=== PATIENT | male | born 1960 | race Caucasian/White ===

== ENCOUNTER 2017-07-10 20:59 | Emergency (ER) | payer OTHER ==
[2017-07-10 21:35] VITALS: TEMP 97.3
--- NOTE | 2017-07-10 22:23 | EDPHY ---
H & P Stated Complaint: headache Time Seen by Provider: 07/10/17 22:22 HPI/ROS: HPI: This is a 56-year-old male who presents with Chief Complaint: Headache Location: Behind both eyes, posterior head Quality: Throbbing pain Duration: 1-2 hours prior to arrival Signs and Symptoms: no fever, no nausea, no vomiting, + photophobia, + noise sensitivity, no neck stiffness, no ear pain, no tinnitus, no nasal congestion, no sinus pressure, no weakness, no radiation, + restless leg, no aura Timing: Acute Severity: Moderate Context: Patient reports that he has history of migraine headache and presents with 1 that is similar to his others today to the emergency room. He describes the pain to be throbbing behind both eyes and at the base of his neck, nonradiating in nature, moderate in intensity. He recently flew from [place] to [place] for work related purposes and developed a [place] He does report he has not drink enough water today. Denies any fever/neck stiffness/ear pain/weakness/radiation. He has not tried anything for the symptoms. Modifying Factors: None Comment: ROS: see HPI Constitutional: No fever, no chills, no weight loss Eyes: No blurred vision Respiratory: No shortness of breath, no cough Cardiovascular: No chest pain, no palpitations Gastrointestinal: No nausea, no vomiting, no diarrhea, no hematemesis, no blood in stool Genitourinary: No dysuria, no blood in urine Extremities: No myalgias, no edema Neurologic: No weakness, no numbness Skin: No rashes, no petechiae Hematologic: No bruising, no bleeding MEDICAL/SURGICAL/SOCIAL HISTORY: Medical history: Migraines Surgical history: Denies Social history: . Employed. Travels for his job. CONSTITUTIONAL: Mild distress, adult white male, awake and alert, no obvious distress HEENT: Atraumatic and normocephalic, PERRL, EOMI. Tympanic membranes clear. Oropharynx clear, no exudate and moist pink mucosa. Airway patent. No lymphadenopathy. No meningismus. Cardiovascular: Normal S1/S2, regular rate, regular rhythm, without murmur rub or gallop. PULMONARY/CHEST: Symmetrical and nontender. Clear to auscultation bilaterally. Good air movement. No accessory muscle usage. ABDOMEN: Soft, nondistended, nontender, no rebound, no guarding, no peritoneal signs, no masses or organomegaly. No CVAT. EXTREMITIES: 2/2 pulses, strength 5/5, no deformities, no clubbing, no cyanosis or edema. NEUROLOGICAL: no focal neuro deficits. GCS 15. Cranial nerves 2-12 grossly intact. Speech clear. Normal Romberg test. Normal cerebellar testing. SKIN: Warm and dry, no erythema. no rash. Good capillary refill. Source: Patient Exam Limitations: No limitations - Personal History Current Tetanus Diphtheria and Acellular Pertussis (TDAP): Unsure - Medical/Surgical History Hx Asthma: No Hx Chronic Respiratory Disease: No Hx Diabetes: No Hx Cardiac Disease: No Hx Renal Disease: No Hx Cirrhosis: No Hx Alcoholism: No Hx HIV/AIDS: No Hx Splenectomy or Spleen Trauma: No Other PMH: migraines, - Social History Smoking Status: Never smoked Constitutional: Initial Vital Signs Temperature (C) 36.3 C 07/10/17 21:32 Heart Rate 66 07/10/17 21:32 Respiratory Rate 20 07/10/17 21:32 Blood Pressure 192/117 H 07/10/17 21:32 O2 Sat (%) 96 07/10/17 21:32 Allergies/Adverse Reactions: amoxicillin [Amoxicillin] Allergy (Mild, Verified 07/10/17 21:31) Rash Home Medications: Medication Instructions Recorded Acet/Caffeine/Buta Fioricet 1 each PO Q6 PRN #12 tab 07/11/17 [Fioricet (*)] Medical Decision Making ED Course/Re-evaluation: No neurological deficits. Migraine is consistent with other migraine. Head CT imaging or MRI are not indicated at this time. Given 1 L normal saline, IV Toradol, IV Decadron, IV Reglan, IV promethazine and IV Ativan adequate relief Monitored in the emergency room for over 3 hr. 2340: Notified by nurse patient has been sleeping for over an hour. at bedside reports that he has complete relief. Vital signs improved at discharge. This patient was seen under the supervision of my secondary supervising physician. I evaluated care for this patient independently. Differential Diagnosis: Headache including but not limited to subarachnoid hemorrhage, migraine headache , tension headache and infectious causes such as meningitis, pharyngitis and sinusitis. - Data Points Medications Given: Discontinued Medications Dexamethasone (Decadron Injection) 8 mg IVP EDNOW ONE Stop: 07/10/17 22:39 Last Admin: 07/10/17 22:52 Dose: 8 mg Sodium Chloride (Ns) 1,000 mls @ 3,000 mls/hr IV EDNOW ONE Stop: 07/10/17 22:57 Last Admin: 07/10/17 22:44 Dose: 1,000 mls Ketorolac Tromethamine (Toradol) 15 mg IVP/IM EDNOW ONE Stop: 07/10/17 22:39 Last Admin: 07/10/17 22:45 Dose: 15 mg Lorazepam (Ativan Injection) 2 mg IVP EDNOW ONE Stop: 07/10/17 23:08 Last Admin: 07/10/17 23:10 Dose: 2 mg Metoclopramide HCl (Reglan Injection) 10 mg IVP EDNOW ONE Stop: 07/10/17 22:39 Last Admin: 07/10/17 22:49 Dose: 10 mg Promethazine HCl (Phenergan) 12.5 mg IVP EDNOW ONE Stop: 07/10/17 22:39 Last Admin: 07/10/17 22:47 Dose: 12.5 mg Departure - Departure Disposition: Home, Routine, Self-Care Clinical Impression: Migraine headache without aura Qualifiers: Status migrainosus presence: without status migrainosus Intractability: not intractable Qualified Code(s): G43.009 - Migraine without aura, not intractable , without status migrainosus Condition: Good Instructions: Migraine Headache (ED) Additional Instructions: Consume a minimum of 8-10 glasses of water or electrolyte fluid replacement drinks that include Gatorade, Powerade, Pedialyte. Eat a bland diet for the next 48 hours and then slowly advance as tolerated. Take Fioricet 1 tab every 6 hours as needed for headache. Return to the ER immediately if you have progressive headaches, neurologic deficits, gait abnormality, visual disturbance, slurred speech, or any other symptom that concerns you. Referrals: Pedro Damon MD [Primary Care Provider] - As per Instructions Prescriptions: Acet/Caffeine/Buta Fioricet [Fioricet (*)] 1 each PO Q6 PRN #12 tab PRN Reason: Headache
[2017-07-10] MEDS ORDERED: DEXAMETHASONE 4 MG/ML VIAL IVP ONE (22:38)
[2017-07-10] MEDS ORDERED: KETOROLAC 15 MG/1 ML SDV IVP/IM ONE (22:38)
[2017-07-10] MEDS ORDERED: NS 1,000 ML IV ONE (22:38)
[2017-07-10] MEDS ORDERED: METOCLOPRAMIDE 10 MG/2 ML VIAL IVP ONE (22:38)
[2017-07-10] MEDS ORDERED: PROMETHAZINE HCL 25 MG/ML INJ IVP ONE (22:38)
[2017-07-10] MEDS ORDERED: LORazepam 2 MG/ML INJ IVP ONE (23:07)
[2017-07-11 00:27] VITALS: BP 161/90; PULSE 79; RESP 16; O2SAT 93
== END 2017-07-11 00:27 | disposition home or self-care (01) ==
DX: G43.009 Migraine without aura, not intractable, without status migrainosus (principal)
CPT/HCPCS: 96374; J1100; J1885; J2060; J2550; J2765